=== PATIENT | female | born 1985 | race Caucasian/White ===

== ENCOUNTER 2017-02-12 11:51 | Emergency (ER) | payer OTHER ==
[2017-02-12 12:03] VITALS: PULSE 75; RESP 16; TEMP 98.2; O2SAT 97
--- NOTE | 2017-02-12 12:54 | EDPHY ---
H & P Stated Complaint: polyurethane resin exposure monday/irritation to arms getting worse HPI/ROS: CHIEF COMPLAINT: Chemical burn on left forearm HISTORY OF PRESENT ILLNESS: The patient is a 31 y/o female complaining of a chemical burn on Monday, 6 days ago, after some Featherlite (a polyurethane elastomer) got on her her left forearm. She was using Featherlite for special effects makeup. She initially noticed small bumps on her left arm. Today the rash became more irritated and she noticed the rash started to spread to her right arm. It is currently feeling itchier than it had been in the past 6 days. She has not called Poison Control. She has not taken anything to modify her symptoms. Denies fever, shortness of breath, paresthesias, weakness or other pertinent symptoms. REVIEW OF SYSTEMS: A ten point review of systems was performed and is negative with the exception of the items mentioned in the HPI. Past medical history: Denies Past surgical history: Denies Family history: Noncontributory Social history: Lives in [place] Single Nonsmoker General Appearance: Alert. Vital signs reviewed. Eyes: Pupils equal and round, no conjunctival injection, no discharge. Anicteric. ENT, Mouth: Mucous membranes are moist, no oropharyngeal erythema or edema. Neck: No lymphadenopathy, supple. Respiratory: Lungs are clear to auscultation; no wheezes, rales, or rhonchi. Cardiovascular: Regular rate and rhythm; no murmur, rub, or gallop. Gastrointestinal: Abdomen is soft and nontender, no masses or organomegaly, bowel sounds normal. Skin: Erythematic papular rash on both forearms, markedly worse on left lateral forearm with a 6x3 in confluent area of rash. One 1x2in confluent patch on right forearm, otherwise patchy rash on that forearm. Back: Nontender to palpation over the thoracolumbar spine. No CVAT. Extremities: No lower extremity edema, no calf tenderness or swelling. Neurological: Alert and oriented. Moving all four extremities easily and equally. Psychiatric: Normal affect. - Personal History LMP (Females 10-55): 22-28 Days Ago Current Tetanus/Diphtheria Vaccine: Yes Tetanus Vaccine Date: 2015 - Medical/Surgical History Hx Asthma: No Hx Chronic Respiratory Disease: No Hx Diabetes: No Hx Cardiac Disease: No Hx Renal Disease: No Hx Cirrhosis: No Hx Alcoholism: No Hx HIV/AIDS: No Hx Splenectomy or Spleen Trauma: No Other PMH: denies - Social History Smoking Status: Never smoked Constitutional: Initial Vital Signs Temperature (C) 36.8 C 02/12/17 12:00 Heart Rate 75 02/12/17 12:00 Respiratory Rate 16 02/12/17 12:00 Blood Pressure 128/70 H 02/12/17 12:00 O2 Sat (%) 97 02/12/17 12:00 O2 Delivery Mode Room Air Allergies/Adverse Reactions: No Known Allergies Allergy (Verified 02/12/17 11:59) Home Medications: Medication Instructions Recorded Nuvaring Vaginal Ring 02/12/13 predniSONE 20 mg PO BID #3 02/12/17 Medical Decision Making ED Course/Re-evaluation: The patient is a 31 y/o female presenting with a worsening erythematic papular rash on both of her forearms after spilling Featherlite (a polyurethane elastomer) on Monday, 6 days ago. The rash is markedly worse on her left lateral forearm with a 6x3 inch confluent area of rash. There is one 1x2 inch confluent patch on her right forearm. 25mg PO Benadryl administered for the patients symptoms. 1326: Consulted with Poison Control, regarding the patient's chemical burn. They recommend I treat her rash as a contact dermatitis. Her poison control case number is [id number]. 1350: Reassessed patient and discussed Poison Control's recommendation. She will be placed on short course of Prednisone. Symptomatic treatments for itching also recommended, such as benadryl and Sarna lotion. Return precautions provided; patient is comfortable with this plan. Differential Diagnosis: DDX includes but is not limited to contact dermatitis, anaphylaxis, urticaria, eczema. - Data Points Medications Given: Discontinued Medications Diphenhydramine HCl (Benadryl) 25 mg PO EDNOW ONE Stop: 02/12/17 13:13 Last Admin: 02/12/17 13:31 Dose: 25 mg Departure - Departure Disposition: Home, Routine, Self-Care Clinical Impression: Rash Contact dermatitis Qualifiers: Contact dermatitis type: irritant Contact dermatitis trigger: other chemical product Qualified Code(s): L24.5 - Irritant contact dermatitis due to other chemical products Condition: Good Instructions: Contact Dermatitis (ED) Additional Instructions: Your poison control case number is [id number]. Take the prednisone as prescribed for the next 3 days. After that it is fine for you to use hydrocortisone cream on the irritated area. In the meantime I recommend that you try Sarna lotion for itching. You can buy this over-the- counter. Take Benadryl according to the package instructions for itching. If you prefer , you can take a nonsedating antihistamine such as Claritin. Referrals: Herminio Velazquez MD [[facility] [place] Primary [place] Provider] - As per Instructions Prescriptions: predniSONE 20 mg PO BID #3 Report Scribed for: Parisa Ch Report Scribed by: Mignon Reese Date of Report: 02/12/17 Time of Report: 13:02 Physician Review and Approval Statement: 02/12/17 12:54 Portions of this note were transcribed by the certified medical records coder. I, Dr. Parisa Ch, personally performed the history, physical exam, and medical decision- making; and confirmed the accuracy of the information in the transcribed note.
[2017-02-12] MEDS ORDERED: diphenhydrAMINE 25 MG CAP PO ONE (13:12)
[2017-02-12 14:02] VITALS: BP 128/70
== END 2017-02-12 14:03 | disposition home or self-care (01) ==
DX: T65.891A Toxic effect of other specified substances, accidental (unintentional), initial encounter (principal); L24.5 Irritant contact dermatitis due to other chemical products; X58.XXXA Exposure to other specified factors, initial encounter